=== PATIENT | female | born 1970 | race Caucasian/White ===

== ENCOUNTER 2019-06-25 21:18 | Inpatient (IN) ==
[2019-06-25] MEDS ORDERED: Naloxone 0.4 MG/ML INJ IVP PRN (23:03)
[2019-06-25] MEDS ORDERED: Isovue-370 500 ML BOTTLE IVP ONE (23:07)
[2019-06-25] MEDS ORDERED: Heparin 25,000 UNIT/250 ML D5W 25,000 UNIT/250 ML IV.SOLN IVC SCH (23:45)
[2019-06-25] MEDS ORDERED: Aspirin 325 MG TABLET PO ONE (23:46)
[2019-06-25] MEDS ORDERED: *HR* Heparin 5,000 UNIT/ML VIAL IVP PRN (23:46)
[2019-06-25] MEDS ORDERED: *HR* Heparin 5,000 UNIT/ML VIAL IVP ONE (23:46)
[2019-06-26 01:31] LABS: Alanine Aminotransferase 17 Units/L (7-52); Albumin 3.6 g/dL (3.5-5.7); Albumin/Globulin Ratio 1.7 (1.1-2.2); Alkaline Phosphatase 56 Units/L (34-104); Aspartate Amino Transferase 78 Units/L (13-39); BUN/Creatinine Ratio 19 (6-26); Bilirubin,Total 0.6 mg/dL (0.3-1.0); Blood Urea Nitrogen 20 mg/dL (6-20); Calcium 8.7 mg/dL (8.6-10.3); Carbon Dioxide 21 mEq/L (23-29); Chloride 113 mEq/L (98-107); Chol/HDL Ratio 3.5 (0-4.9); Cholesterol 136 mg/dL (< 200); Globulin 2.1 g/dL (2.4-3.5); Glucose 234 mg/dL (70-105); HDL Cholesterol 39 mg/dL (40-59); LDL Cholesterol,Calculated 77 mg/dL (0-99); Magnesium 1.8 mg/dL (1.6-2.6); Osmolality,Calculated 298 (280-300); Phosphorous 2.3 mg/dL (2.7-4.5); Potassium 3.6 mEq/L (3.5-5.1); Sodium 139 mEq/L (136-145); Total Protein 5.7 g/dL (6.4-8.9); Triglycerides 99 mg/dL (< 150); eGFR For African Americans > 60 (> 60); eGFR For Non-African Americans 55 (> 60)
[2019-06-26] MEDS: Ipratropium/Albuterol Neb 3 ML IH SCH ×4 (04:33→22:22)
[2019-06-26 07:48] LABS: INR 0.9; Prothrombin Time 10.3 Seconds (9.4-12.1)
[2019-06-26 08:09] LABS: Basophils % 0.1 %; Immature Granulocytes % 0.5 % (0-4); Lymphocytes # 0.6 K/mcL (0.6-4.6); Lymphocytes % 5.9 %; Mean Corpuscular HGB Conc 36.1 g/dL (31.6-35.5); Mean Corpuscular Hemoglobin 35.4 pg (28.0-33.3); Mean Corpuscular Volume 98.1 fL (83.0-100.0); Mean Platelet Volume 11.7 fL (9.4-12.4); Monocytes # 0.1 K/mcL (0.0-1.3); Monocytes % 1.4 %; Platelet Count 115 K/mcL (140-400); Red Blood Count 3.67 M/mcL (3.82-4.97); Red Cell Distribution Width 13.2 % (11.5-14.5); Segmented Neutrophils % 92.1 %
[2019-06-26 08:11] LABS: Neutrophils # 8.7 K/mcL (1.6-8.9); White Blood Count 9.4 K/mcL (4.3-11.1)
[2019-06-26] MEDS ORDERED: Furosemide 20 MG/2 ML VIAL IVP ONE (09:08)
[2019-06-26] MEDS: Aspirin Enteric Coated 81 MG Tablet PO SCH (09:48)
[2019-06-26 11:16] LABS: Bilirubin,Urine Negative (Negative); Blood,Urine Negative (Negative); Clarity,Urine Cloudy (Clear); Color,Urine Dark Yellow (Yellow); Glucose,Urine (UA) 100 mg/dL (Normal); Ketones,Urine Negative (Negative); Leukocyte Esterase,Urine Negative (Negative); Nitrite,Urine Negative (Negative); PH,Urine 6.5 pH Units (5.0-8.0); Protein,Urine Trace mg/dL (Neg-Trace); Specific Gravity,Urine 1.027 (1.010-1.025); Urobilinogen,Urine Normal (Normal)
[2019-06-26 11:19] LABS: Sodium, Urine 44.5 mEq/L
[2019-06-26 11:20] LABS: Bacteria,Urine None Seen per hpf (None-Few); Hyaline Casts,Urine None Seen per lpf (None-Few); RBC,Urine 0-3 per hpf (0-3); Squamous Epithelial Cell,Urine Many per lpf (None-Few); WBC,Urine 0-3 per hpf (0-3)
[2019-06-26] MEDS: *HR* HYDROcodone/Acet 7.5/325 mg TABLET PO PRN ×2 (11:34→19:57)
[2019-06-26] MEDS: Nicotine 14 MG PATCH.TD24 TD SCH (11:34)
[2019-06-26] MEDS ORDERED: 0.9 % Sodium Chloride 1,000 ML IVC SCH (11:45)
[2019-06-26 17:45] LABS: Hematocrit 30.3 % (35.3-44.9)
[2019-06-26 17:47] LABS: Hemoglobin 10.9 g/dL (11.5-15.4)
[2019-06-26] MEDS: *HR* Heparin 5,000 UNIT/ML VIAL IVP PRN (18:35)
[2019-06-26] MEDS: Ranolazine 500 MG TAB.ER.12H PO SCH (19:57)
[2019-06-26] MEDS: Acetaminophen 325 MG TABLET PO PRN (23:54)
[2019-06-27 02:15] LABS: Basophils % 0.1 %; Hematocrit 30.5 % (35.3-44.9); Hemoglobin 10.3 g/dL (11.5-15.4); Immature Granulocytes % 0.6 % (0-4); Lymphocytes # 1.4 K/mcL (0.6-4.6); Lymphocytes % 9.9 %; Mean Corpuscular HGB Conc 33.8 g/dL (31.6-35.5); Mean Corpuscular Hemoglobin 34.9 pg (28.0-33.3); Mean Corpuscular Volume 103.4 fL (83.0-100.0); Mean Platelet Volume 11.1 fL (9.4-12.4); Monocytes # 0.6 K/mcL (0.0-1.3); Monocytes % 4.2 %; Neutrophils # 12.3 K/mcL (1.6-8.9); Nucleated Red Blood Cells 0.1 /100 WBC (0); Platelet Count 114 K/mcL (140-400); Red Blood Count 2.95 M/mcL (3.82-4.97); Red Cell Distribution Width 13.6 % (11.5-14.5); Segmented Neutrophils % 85.2 %
[2019-06-27 02:17] LABS: White Blood Count 14.4 K/mcL (4.3-11.1)
[2019-06-27 02:31] LABS: BUN/Creatinine Ratio 14 (6-26); Blood Urea Nitrogen 16 mg/dL (6-20); Calcium 8.8 mg/dL (8.6-10.3); Carbon Dioxide 25 mEq/L (23-29); Chloride 113 mEq/L (98-107); Glucose 127 mg/dL (70-105); Magnesium 1.8 mg/dL (1.6-2.6); Osmolality,Calculated 295 (280-300); Phosphorous 2.2 mg/dL (2.7-4.5); Potassium 3.9 mEq/L (3.5-5.1); Sodium 141 mEq/L (136-145); eGFR For African Americans > 60 (> 60); eGFR For Non-African Americans 52 (> 60)
[2019-06-27] MEDS: Ipratropium/Albuterol Neb 3 ML IH SCH ×2 (05:06→11:06)
[2019-06-27] MEDS: Ranolazine 500 MG TAB.ER.12H PO SCH (07:36)
[2019-06-27] MEDS: Acetaminophen 325 MG TABLET PO PRN (07:36)
[2019-06-27] MEDS: Nicotine 14 MG PATCH.TD24 TD SCH (07:37)
[2019-06-27] MEDS: Aspirin Enteric Coated 81 MG Tablet PO SCH (07:37)
[2019-06-27 08:12] LABS: Estimated Average Glucose 103 mg/dl
[2019-06-27] MEDS ORDERED: Nicotine 14 MG PATCH.TD24 TD SCH (09:00)
[2019-06-27] MEDS: *HR* Heparin 5,000 UNIT/ML VIAL IVP PRN (09:17)
[2019-06-27] MEDS ORDERED: Ibuprofen 800 MG TABLET PO PRN (09:31)
[2019-06-27] MEDS ORDERED: diazePAM 10 MG TABLET PO PRN (09:31)
[2019-06-27] MEDS ORDERED: 0.9 % Sodium Chloride 1,000 ML ONE ×2 (10:07→10:22)
[2019-06-27] MEDS ORDERED: Heparin 1,000 UNITS/500 mL 1,000 ML ONE (10:09)
[2019-06-27] MEDS ORDERED: Nitroglycerin 1,000 MCG/10 ML VIAL IV ONE (10:22)
[2019-06-27] MEDS ORDERED: ISOVUE-370 200 ML INFUS..BTL ONE (10:22)
[2019-06-27] MEDS ORDERED: Heparin 1,000 UNITS/500 mL 500 ML ONE (10:22)
[2019-06-27] MEDS ORDERED: *HR* Heparin 10,000 UNIT/10 ML VIAL ONE (10:22)
[2019-06-27] MEDS ORDERED: *HR* Midazolam HCl 2 MG/2 ML VIAL ONE ×2 (10:25→10:39)
[2019-06-27 14:39] VITALS: BP 108/81
== END 2019-06-27 14:43 | disposition short-term general hospital (02) | DRG 280 ==
LOC: 2NENU → SUATTDRO 22:02 → 2NNU 06-26 17:49
PROVIDERS: ADMIT Internal Medicine; ATTEND Internal Medicine